=== PATIENT | female | born 1945 | race Caucasian/White ===

== ENCOUNTER 2017-06-02 21:26 | Observation (INO) | payer MEDICARE ==
[2017-06-02] MEDS ORDERED: ASPIRIN 81 MG CHEW PO STA (22:17)
[2017-06-02] MEDS ORDERED: NITROGLYCERIN OINT 1 INCH/GM PACKET TOPICAL STA (22:17)
[2017-06-02] MEDS ORDERED: SODIUM CHLORIDE 0.9% 1,000 ML IV STA (22:18)
[2017-06-02] MEDS ORDERED: ONDANSETRON 4 MG/2 ML VIAL IVP STA (22:18)
--- NOTE | 2017-06-02 22:22 | ED ---
General Adult HPI - General Chief complaint: Shortness of Breath Stated complaint: SOB Time Seen by Provider: 06/02/17 21:56 Source: patient Mode of arrival: EMS - History of Present Illness Initial comments: This 71-year-old white female presents with family with the complaint of developing some nausea earlier today. She then had an episode where she was short of breath and had some chest pain and felt dizzy and presyncopal. She states that the chest pain is described as more of a pressure throughout her left chest. She states that it lasted approximately 10 minutes and then seemed to resolve. She is feeling better at this time. She apparently was feeling somewhat anxious and does have a history of anxiety and is unsure if she had an anxiety attack. She denies any leg pain or swelling or history of DVT or PE. She does relate that she has a history of 3 felt the heart valves which are being monitored by her doctor through [facility]. She also relates a history of COPD as well as rheumatoid arthritis and states that she has a positive lupus clotting factor. She was recently diagnosed with stage III kidney disease. She states that her last echocardiogram was approximately one month ago. Her last stress test was approximately one year ago. She is being followed every 6 months with an echocardiogram through her gaming commissioner through [facility]. She apparently also has a 4.1 cm aortic aneurysm. She denies any other complaints or modifying factors. - Related Data Home Medications Medication Instructions Recorded Confirmed Atenolol 100 mg PO BID PRN 04/22/14 06/02/17 Febuxostat [Uloric] 40 mg PO DAILY 04/22/14 06/02/17 Albuterol Inhaler [Ventolin Hfa 1 puff INHALATION RT-QID PRN 06/02/17 06/02/17 Inhaler] Colchicine [Colcrys] 0.6 mg PO DAILY PRN 06/02/17 06/02/17 Ranitidine HCl [Zantac] 150 mg PO DAILY 06/02/17 06/02/17 amLODIPine [Norvasc] 10 mg PO DAILY PRN 06/02/17 06/02/17 predniSONE 2.5 mg PO QAM 06/02/17 06/02/17 Allergies Allergy/AdvReac Type Severity Reaction Status Date / Time No Known Allergies Allergy Verified 06/02/17 21:35 Review of Systems ROS Statement: Those systems with pertinent positive or pertinent negative responses have been documented in the HPI. ROS Other: All systems not noted in ROS Statement are negative. 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 VITAL SIGNS: Heart rate, blood pressure, respiratory rate reviewed as recorded in nurse's notes. EYES: Pupils are round and reactive. Extraocular movements are intact. No conjunctival / lid redness or swelling. ENT: No external evidence of injury, swelling, or ecchymosis. Airway is patent. Throat is clear. NECK: Nontender. No swelling or evidence of injury. No subcutaneous emphysema. Trachea is midline. No thyroid mass. HEART: Regular rate and rhythm. Good peripheral pulses. LUNGS/CHEST: Breath sounds clear and equal bilaterally. No rales, rhonchi, or wheezes. No ecchymosis, subcutaneous emphysema, or tenderness. ABDOMEN: Abdomen soft without tenderness. No palpable masses or organomegaly. No peritoneal signs. No abdominal wall swelling or ecchymosis. EXTREMITIES: No extremity tenderness. Normal muscle tone and function. No thoracolumbar tenderness. NEUROLOGIC: Sensation is grossly intact. Cranial nerve exam reveals face is symmetrical, tongue is midline, speech is clear. SKIN: No abrasions or ecchymosis is noted. No induration or masses noted. PSYCHIATRIC: Alert and oriented. Appropriate behavior and judgment. Course Vital Signs 06/02/17 06/02/17 21:29 23:02 Temperature 97.9 F Pulse Rate 54 L 55 L Respiratory 18 18 Rate Blood Pressure 170/80 150/73 O2 Sat by Pulse 97 95 Oximetry Medical Decision Making - Medical Decision Making The patient is seen and examined. All diagnostics were reviewed. An IV is established and she is placed on a cardiac technologist. No ectopy is identified. The EKG shows a sinus bradycardia at a rate of 56. No acute ST-T wave changes are identified. The SC interval is 168, QRS duration is 68, and the QTc interval is 409. She is given an aspirin as well as some Nitropaste. Zofran is administered IV. She is given mild fluid hydration. The chest x-ray does not show any acute process. The laboratory overall is fairly unremarkable with negative cardiac enzymes and negative d-dimer. The exact cause of her symptoms are not definitively determined. It is felt as though she would benefit from admission for further workup. The possibility of acute coronary syndrome certainly is possible. She is agreeable to this plan and case will be discussed with internal medicine in the near future. She is feeling much improved on recheck with the Zofran. - Lab Data Result diagrams: 06/02/17 21:41 06/02/17 21:41 Lab Results 06/02/17 06/02/17 06/02/17 Range/Units 21:41 21:41 21:41 WBC 5.2 (3.8-10.6) k/uL RBC 3.83 (3.80-5.40) m/uL Hgb 11.8 (11.4-16.0) gm/dL Hct 35.5 (34.0-46.0) % MCV 92.8 (80.0-100.0) fL MCH 30.9 (25.0-35.0) pg MCHC 33.3 (31.0-37.0) g/dL RDW 14.8 (11.5-15.5) % Plt Count 178 (150-450) k/uL Neutrophils % 88 % Lymphocytes % 9 % Monocytes % 2 % Eosinophils % 0 % Basophils % 0 % Neutrophils # 4.6 (1.3-7.7) k/uL Lymphocytes # 0.4 L (1.0-4.8) k/uL Monocytes # 0.1 (0-1.0) k/uL Eosinophils # 0.0 (0-0.7) k/uL Basophils # 0.0 (0-0.2) k/uL PT (9.0-12.0) sec INR (<1.2) APTT (22.0-30.0) sec D-Dimer (<0.60) mg/L FEU Sodium 136 L (137-145) mmol/L Potassium 4.3 (3.5-5.1) mmol/L Chloride 106 (98-107) mmol/L Carbon Dioxide 23 (22-30) mmol/L Anion Gap 7 mmol/L BUN 18 H (7-17) mg/dL Creatinine 1.10 H (0.52-1.04) mg/dL Est GFR (MDRD) Af Amer 60 (>60 ml/min/1.73 sqM) Est GFR (MDRD) Non-Af 49 (>60 ml/min/1.73 sqM) Glucose 101 H (74-99) mg/dL Calcium 9.1 (8.4-10.2) mg/dL Total Bilirubin 0.4 (0.2-1.3) mg/dL AST 17 (14-36) U/L ALT 29 (9-52) U/L Alkaline Phosphatase 66 (38-126) U/L Total Creatine Kinase <20 L (30-135) U/L CK-MB (CK-2) 0.4 (0.0-2.4) ng/mL CK-MB (CK-2) Rel Index 0.0 Troponin I <0.012 (0.000-0.034) ng/mL NT-Pro-B Natriuret Pep pg/mL Total Protein 6.0 L (6.3-8.2) g/dL Albumin 3.5 (3.5-5.0) g/dL 06/02/17 06/02/17 Range/Units 21:41 21:41 WBC (3.8-10.6) k/uL RBC (3.80-5.40) m/uL Hgb (11.4-16.0) gm/dL Hct (34.0-46.0) % MCV (80.0-100.0) fL MCH (25.0-35.0) pg MCHC (31.0-37.0) g/dL RDW (11.5-15.5) % Plt Count (150-450) k/uL Neutrophils % % Lymphocytes % % Monocytes % % Eosinophils % % Basophils % % Neutrophils # (1.3-7.7) k/uL Lymphocytes # (1.0-4.8) k/uL Monocytes # (0-1.0) k/uL Eosinophils # (0-0.7) k/uL Basophils # (0-0.2) k/uL PT 10.7 (9.0-12.0) sec INR 1.1 (<1.2) APTT 20.6 L (22.0-30.0) sec D-Dimer 0.58 (<0.60) mg/L FEU Sodium (137-145) mmol/L Potassium (3.5-5.1) mmol/L Chloride (98-107) mmol/L Carbon Dioxide (22-30) mmol/L Anion Gap mmol/L BUN (7-17) mg/dL Creatinine (0.52-1.04) mg/dL Est GFR (MDRD) Af Amer (>60 ml/min/1.73 sqM) Est GFR (MDRD) Non-Af (>60 ml/min/1.73 sqM) Glucose (74-99) mg/dL Calcium (8.4-10.2) mg/dL Total Bilirubin (0.2-1.3) mg/dL AST (14-36) U/L ALT (9-52) U/L Alkaline Phosphatase (38-126) U/L Total Creatine Kinase (30-135) U/L CK-MB (CK-2) (0.0-2.4) ng/mL CK-MB (CK-2) Rel Index Troponin I (0.000-0.034) ng/mL NT-Pro-B Natriuret Pep 269 pg/mL Total Protein (6.3-8.2) g/dL Albumin (3.5-5.0) g/dL Disposition Clinical Impression: Nausea, Chest pain, Dyspnea, Dizziness, Pre-syncope, Renal insufficiency, Valvular heart disease Disposition: ADMITTED IP TO THIS [facility] Condition: Fair Time of Disposition: 00:05 Decision Date: 06/03/17 Decision Time: 00:06
[2017-06-02 22:32] LABS: Basophils % (A) 0 %; CH 30.3; CHCM 32.8; Eosinophils % (A) 0 %; HCT 35.5 % (34.0-46.0); HDW 2.35; HGB 11.8 gm/dL (11.4-16.0); Luc # (Auto) 0.02; Luc % (Auto) 0; Lymphocytes # (A) 0.4 k/uL (1.0-4.8); Lymphocytes % (A) 9 %; MCH 30.9 pg (25.0-35.0); MCHC 33.3 g/dL (31.0-37.0); MCV 92.8 fL (80.0-100.0); Mean Platelet Volume 8.7; Monocytes # (A) 0.1 k/uL (0-1.0); Monocytes % (A) 2 %; Neutrophils # (A) 4.6 k/uL (1.3-7.7); Neutrophils % (A) 88 %; RBC 3.83 m/uL (3.80-5.40); RDW 14.8 % (11.5-15.5); WBC 5.2 k/uL (3.8-10.6); WBC (Perox) 5.12
[2017-06-02 22:41] LABS: INR 1.1 (<1.2); Prothrombin Time 10.7 sec (9.0-12.0)
[2017-06-02 22:54] LABS: Creatine Kinase <20 U/L (30-135)
--- NOTE | 2017-06-02 22:54 | XR ---
EXAM: XR Chest, 2 Views CLINICAL HISTORY: Reason: difficulty breathing TECHNIQUE: Frontal and lateral views of the chest. COMPARISON: Chest radiograph on 09/19/2016 FINDINGS: Lungs/pleura: Stable eventration of the right hemidiaphragm. No focal consolidation. No pleural effusion or pneumothorax. Heart/mediastinum: Normal. No cardiomegaly. Soft tissues: Unremarkable. Bones: No acute fracture. IMPRESSION: No acute disease identified
[2017-06-02 22:56] LABS: Calcium 9.1 mg/dL (8.4-10.2); Partial Thromboplastin Time 20.6 sec (22.0-30.0); Potassium 4.3 mmol/L (3.5-5.1); Total Bilirubin 0.4 mg/dL (0.2-1.3)
[2017-06-02 23:06] LABS: Creatine Kinase MB 0.4 ng/mL (0.0-2.4); Troponin I <0.012 ng/mL (0.000-0.034)
[2017-06-03] MEDS ORDERED: NITROGLYCERIN SL TABS 0.4 MG TAB SUBLINGUAL PRN (00:07)
[2017-06-03] MEDS ORDERED: ACETAMINOPHEN TAB 325 MG TAB PO PRN (00:07)
[2017-06-03] MEDS ORDERED: amLODIPine 10 MG TAB PO PRN (00:10)
[2017-06-03] MEDS ORDERED: ALBUTEROL NEBULIZED 2.5 MG/3 ML INHALATION PRN (00:10)
[2017-06-03] MEDS ORDERED: ONDANSETRON 4 MG/2 ML VIAL IVP PRN (00:10)
[2017-06-03] MEDS ORDERED: COLCHICINE 0.6 MG TAB PO PRN (00:10)
[2017-06-03] MEDS ORDERED: ATENOLOL 50 MG TAB PO PRN (00:10)
[2017-06-03 01:00] VITALS: BMI 21.1
[2017-06-03 05:37] LABS: Creatine Kinase MB 0.5 ng/mL (0.0-2.4); Troponin I 0.027 ng/mL (0.000-0.034)
[2017-06-03] MEDS ORDERED: NITROGLYCERIN OINT 1 INCH/GM PACKET TOPICAL SCH (06:00)
[2017-06-03 08:51] VITALS: RESP 16
[2017-06-03] MEDS ORDERED: predniSONE 10 MG TAB PO SCH (09:00)
[2017-06-03] MEDS ORDERED: ALLOPURINOL 100 MG TAB PO SCH (09:00)
[2017-06-03] MEDS ORDERED: FAMOTIDINE 20 MG TAB PO SCH (09:00)
[2017-06-03] MEDS ORDERED: ENOXAPARIN 40 MG/0.4 ML SYRINGE SQ SCH (09:00)
--- NOTE | 2017-06-03 10:08 | CONS ---
This is a lady with a history of rheumatoid arthritis, hypertension, hypercholesterolemia who has mild valvular regurgitation. She used to see Dr. Cee, now she sees a Interventionist in the [facility] system. She came here because she had a flare up of rheumatoid arthritis, increased her steroids, felt nauseated when she took the steroids. Had an uncomfortable feeling in her stomach and came into the hospital with also some nondescript chest tightness as well. Most of her complaint was nausea, some shortness of breath, felt dizzy, did quite pass out. After arrival, she is comfortable resting, actually feels a bit better. Apparently her last Lexiscan stress test performed about 15 months ago was unremarkable for ischemia. Echo reveals valvular regurgitation, subsequent VERNON suggested that the regurgitation was not significant but there was a mild aneurysmal dilation of ascending aorta. However, she has rheumatoid arthritis, used Remicade in the past, but because of some diastolic heart failure she has stopped using Remicade. She is comfortable, resting without symptoms. Two sets of troponins are normal and her d-dimer is also unremarkable. PAST MEDICAL HISTORY: 1. Remarkable for rheumatoid arthritis and she is not on any anti-TNF drugs. 2. She has history of diastolic heart dysfunction. 3. Valvular regurgitation. 4. Mild dilatation of ascending aorta. 5. Hypertension. 6. Osteoarthritis. 7. History of previous left hip arthroplasty. ALLERGIES: None. MEDICATIONS: Colchicine, ranitidine, amlodipine and now she is taking prednisone for her flare up. She also takes albuterol inhaler, atenolol 100 mg daily. SOCIAL HISTORY: Patient is not a smoker, does not consume alcohol. On examination, blood pressure is 138/70, pulse rate is 62 per minute, regular. HEENT: Unremarkable. Fundus was not examined by me. Neck is supple, no JVD. I do not hear a carotid bruit. Heart exam reveals S1, S2 without any significant rub, murmur or gallop. Lungs are clear. Abdomen is soft, nontender. Lower extremities reveal normal pulses, no edema. Central nervous system is normal. EKG reveals sinus mechanism, nonspecific ST abnormality, borderline voltage criteria for LVH. Laboratory data revealed unremarkable troponins and also negative d-dimer. IMPRESSION: 1. Atypical chest pain and nausea, probably a flare up of rheumatoid arthritis. 2. Rheumatoid arthritis with deformities. 3. Hypertension. 4. Hyperlipidemia. 5. History of valvular regurgitation and mild dilatation of ascending aorta being followed noninvasively. RECOMMENDATIONS: I am not suggesting any intervention. I will increased activity, have her eat something. If she has no further symptoms, she can be discharged. Pain seems atypical and she had a stress test within the last 14 to 15 months which is unremarkable. If she has recurrence of symptoms, will re- evaluate her, but she can be discharged today. Thank you very much for the consult. RL
[2017-06-03 10:36] LABS: Creatine Kinase MB 0.5 ng/mL (0.0-2.4); Troponin I 0.027 ng/mL (0.000-0.034)
[2017-06-03 12:28] VITALS: BP 152/73; PULSE 56; TEMP 98.8
--- NOTE | 2017-06-03 14:26 | P.HPIM ---
History of Present Illness H&P Date: 06/03/17 Chief Complaint: Not feeling well This is [address] Orona. Patient chronic stable medical conditions include COPD, hyperlipidemia, hypertension, has both osteoarthritis, scoliosis, gout, ascending thoracic artery aneurysm. Patient's long-standing rheumatoid arthritis getting worse has now been off Remicade. Intercavitary just put him on a burst of steroid. Patient also known to have leaky cardiac valves which what she describes she was offered to have TAVR but because of other medical problems this was decided against it. Patient presents with episodes of nausea and dizziness, and patient has not been eating well the patient thinks she's lost about 30 pounds of weight in the recent times. He patient had some chest pressure lasted for about 5 minutes, no perspiration present, no radiation. Just feeling tired and rundown. Has decided to come into the ER. Significant past medical history: COPD, hyperlipidemia, hypertension, rheumatoid arthritis off Remicade, gastritis , thyroid nodule, psoriasis, ascending thoracic aneurysm, leaky cardiac valves, gout Review of Systems GEN.: Tired EYES: None HEENT: None NECK: None RESPIRATORY: None CARDIOVASCULAR: As above GASTROINTESTINAL: As above, GENITOURINARY: None MUSCULOSKELETAL: Pain in the joints LYMPHATICS: None HEMATOLOGICAL: [None] PSYCHIATRY: [Anxiety] NEUROLOGICAL: [None] Past Medical History Past Medical History: COPD, Hyperlipidemia, Hypertension, Osteoarthritis (OA), Rheumatoid Arthritis (RA) Additional Past Medical History / Comment(s): vasculitisbenign thyroid nodules4 types of arthritis - RA, psoriatic, chronic gout, OAautoimmune inner ear, Aortic Anysrusm History of Any Multi-Drug Resistant Organisms: None Reported Past Surgical History: Section, Heart Catheterization, Hysterectomy, Joint Replacement Additional Past Surgical History / Comment(s): left hip replacementremoval of Parotid tumor - left side of neck right knee arthroscopy, left wrist ganglion cyst removal, VERNON Past Anesthesia/Blood Transfusion Reactions: No Reported Reaction Past Psychological History: No Psychological Hx Reported Smoking Status: Never smoker Past Alcohol Use History: None Reported Past Drug Use History: None Reported Additional History: , does not smoke or drink alcohol - Past Family History Mother Family Medical History: No Reported History Father Family Medical History: Myocardial Infarction (PR) Sister(s) Additional Family Medical History / Comment(s): Lupus - pt's sister Medications and Allergies Home Medications Medication Instructions Recorded Confirmed Type Atenolol 100 mg PO BID PRN 04/22/14 06/02/17 History Febuxostat [Uloric] 40 mg PO DAILY 04/22/14 06/02/17 History Albuterol Inhaler [Ventolin Hfa 1 puff INHALATION RT-QID PRN 06/02/17 06/03/17 History Inhaler] Colchicine [Colcrys] 0.6 mg PO DAILY PRN 06/02/17 06/02/17 History Ranitidine HCl [Zantac] 150 mg PO DAILY 06/02/17 06/02/17 History amLODIPine [Norvasc] 10 mg PO DAILY PRN 06/02/17 06/02/17 History predniSONE 2.5 mg PO QAM 06/02/17 06/02/17 History Allergies Allergy/AdvReac Type Severity Reaction Status Date / Time No Known Allergies Allergy Verified 06/03/17 00:54 Physical Exam Vitals: Vital Signs Temp Pulse Pulse Resp BP BP Pulse Ox 06/03/17 12:00 98.8 F 56 L 16 152/73 96 06/03/17 08:00 98.0 F 52 L 16 140/62 97 06/03/17 04:00 18 06/03/17 03:49 55 L 18 116/60 96 06/03/17 01:11 18 06/03/17 00:55 97.8 F 51 L 18 140/71 96 06/03/17 00:39 97.9 F 63 18 132/66 96 06/02/17 23:02 55 L 18 150/73 95 06/02/17 21:29 97.9 F 54 L 18 170/80 97 VITAL SIGNS: [Reviewed. BMI noted] GENERAL: [Average built, sitting up, tired appearing]. EYES: [Pupils equal. Conjunctiva wendy]l. HEENT: [External appearance of nose and ears normal, oral cavity grossly normal] . NECK: [JVD not raised; masses not palpable]. HEART: [First and second heart sounds are normal; no edema]. LUNGS:[ Respiratory rate normal; clear to auscultation]. ABDOMEN: [Soft, nontender, liver spleen not palpable, no masses palpable]. LYMPHATICS: [No lymph nodes palpable in the axilla and neck]. PSYCH: [Alert and oriented x3; mood and affect anxious appearing]l. NEUROLOGICAL: [Cranial nerves grossly intact; no facial asymmetry, power and sensation grossly intact]. MUSCULOSKELETAL: Evidence of severe rheumatoid arthritis specialist in the hands with prominent MCP joints and ulna deviation of the fingers Results CBC & Chem 7: 06/02/17 21:41 06/02/17 21:41 Labs: White count 5.2, hemoglobin 11.8, potassium 4.3,. 18, creatinine 1.10 Troponin less than 0.012, 0.027, 0.027 EKG-nonspecific ST segment changes Assessment and Plan Plan: Assessment: -Possible side effects of steroids and patient will be eating well causing her to become nausea dizzy. Atypical chest pain not really can't take sounding. COPD Hyperlipidemia Hypertension Severe bilateral rheumatoid arthritis Ascending without ascending aorta aneurysm and aneurysm Chronic gout Clinically dehydrated with elevated BUNs from decreased oral intake and nausea vomiting Plan: Patient be hydrated. Cardiology was consulted. Cardiac enzymes are in place. Home medications resumed. Patient is feeling better with hydration.
[2017-06-04] MEDS ORDERED: ASPIRIN 325 MG TAB PO SCH (09:00)
--- NOTE | 2017-06-04 11:22 | P.DS ---
Providers Date of admission: 06/03/17 00:07 Expected date of discharge: 06/03/17 Attending physician: Derek Bright Consults: 06/03/17 00:07 Consult Physician Urgent Consulting Provider: Francis Millan Consult Reason/Comments: cp and sob Do you want consulting provider notified?: Yes Primary care physician: Lázaro Orona [facility] Course: This is [address] Orona. Patient chronic stable medical conditions include COPD, hyperlipidemia, hypertension, has both osteoarthritis and rheumatoid arthritis, scoliosis, gout, ascending thoracic artery aneurysm. Patient's long-standing rheumatoid arthritis getting worse has now been off Remicade. Dr. Orona just put him on a burst of steroid. Patient also known to have leaky cardiac valves which what she describes she was offered to have TAVR but because of other medical problems this was decided against it. Patient presents with episodes of nausea and dizziness, and patient has not been eating well the patient thinks she's lost about 30 pounds of weight in the recent times. He patient had some chest pressure lasted for about 5 minutes, no perspiration present, no radiation. Just feeling tired and rundown. Has decided to come into the ER. Patient is felt to be clinically dehydrated. With the elevated BUN/creatinine. Responded very well to IV fluids. Troponins were negative. Seen by Dr. ANDI Moreno from cardiology who okayed the patient to be discharged. Care was discussed in detail with the patient. On examination: Lungs-fair entry, cardiovascular first seconds are normal Final diagnosis: -Possible side effects of steroids and patient not eating well causing her to become nausea dizzy. Atypical chest pain not really cardiac sounding. COPD Hyperlipidemia Hypertension Severe bilateral rheumatoid arthritis ascending aorta aneurysm , chronic Chronic gout Clinically dehydrated with elevated BUNs from decreased oral intake and nausea vomiting, present on admission Patient Condition at Discharge: Stable Plan - Discharge Summary New Discharge Prescriptions: Continue Febuxostat [Uloric] 40 mg PO DAILY Atenolol 100 mg PO BID PRN PRN Reason: Blood Pressure - High predniSONE 2.5 mg PO QAM Ranitidine HCl [Zantac] 150 mg PO DAILY amLODIPine [Norvasc] 10 mg PO DAILY PRN PRN Reason: Blood Pressure - High Albuterol Inhaler [Ventolin Hfa Inhaler] 1 puff INHALATION RT-QID PRN PRN Reason: Shortness Of Breath Colchicine [Colcrys] 0.6 mg PO DAILY PRN PRN Reason: Gout Flareup Discharge Medication List Atenolol 100 mg PO BID PRN 04/22/14 [History] Febuxostat [Uloric] 40 mg PO DAILY 04/22/14 [History] Albuterol Inhaler [Ventolin Hfa Inhaler] 1 puff INHALATION RT-QID PRN 06/02/17 [ History] Colchicine [Colcrys] 0.6 mg PO DAILY PRN 06/02/17 [History] Ranitidine HCl [Zantac] 150 mg PO DAILY 06/02/17 [History] amLODIPine [Norvasc] 10 mg PO DAILY PRN 06/02/17 [History] predniSONE 2.5 mg PO QAM 06/02/17 [History] Follow up Appointment(s)/Referral(s): Lázaro Orona MD [REFERRING] - 3 Days Patient Instructions/Handouts: Chest Pain (GEN) Discharge Disposition: HOME SELF-CARE
== END 2017-06-03 15:43 | disposition home or self-care (01) ==
LOC: EC 21:26 → 3OBS 06-03 00:07
PROVIDERS: ADMIT Hospitalist; ATTEND Hospitalist
DX: R11.0 Nausea (principal); R07.9 Chest pain, unspecified; R42 Dizziness and giddiness; R55 Syncope and collapse; N28.9 Disorder of kidney and ureter, unspecified; I50.30 Unspecified diastolic (congestive) heart failure; I11.0 Hypertensive heart disease with heart failure; E78.5 Hyperlipidemia, unspecified; E86.0 Dehydration; R11.2 Nausea with vomiting, unspecified; F41.9 Anxiety disorder, unspecified; J44.9 Chronic obstructive pulmonary disease, unspecified; M06.9 Rheumatoid arthritis, unspecified; I71.2 Thoracic aortic aneurysm, without rupture; M19.90 Unspecified osteoarthritis, unspecified site; M1A.9XX0 Chronic gout, unspecified, without tophus (tophi); L40.9 Psoriasis, unspecified; Z96.642 Presence of left artificial hip joint; G51.0 Bell's palsy; E78.00 Pure hypercholesterolemia, unspecified; I38 Endocarditis, valve unspecified; Z82.49 Family history of ischemic heart disease and other diseases of the circulatory system; Z79.899 Other long term (current) drug therapy; Z79.52 Long term (current) use of systemic steroids
CPT/HCPCS: 96361 ×4; 96374 ×2; 99285 ×2; 96372; 36415; 93005; 85379; 83880; 80053; 82550 ×2; 82553 ×2; 84484 ×2; 85025; 85610; 85730; 71020; G0378; J2405; J1650; J7512

== ENCOUNTER → 2017-12-22 | Outpatient (CLI) | payer MEDICARE ==
--- NOTE | 2017-12-25 11:23 | MM ---
Reason for exam: screening (asymptomatic). Last mammogram was performed 20 years and 8 months ago. History: Patient is postmenopausal. Core biopsy of the left breast. Core biopsy of the right breast. Took estrogen for 1 year. Physical Findings: A clinical breast exam by your physician is recommended on an annual basis and results should be correlated with mammographic findings. MG 3D Screening Mammo W/Cad Bilateral CC and MLO view(s) were taken. Prior study comparison: May 01, 1997, bilateral diagnostic mammogram. The breast tissue is heterogeneously dense. This may lower the sensitivity of mammography. Multiple calcification masses. There is chronic nodularity bilaterally. No significant changes when compared with prior studies. ASSESSMENT: Benign, BI-RAD 2 RECOMMENDATION: Routine screening mammogram of both breasts in 1 year.
== END | disposition home or self-care (01) ==
LOC: RADMAMWWP 07:57
PROVIDERS: ATTEND Family Medicine
DX: Z12.31 Encounter for screening mammogram for malignant neoplasm of breast (principal)
CPT/HCPCS: 77063; 77067

== ENCOUNTER → 2017-12-22 | Outpatient (CLI) | payer MEDICARE ==
--- NOTE | 2017-12-22 12:08 | US ---
EXAMINATION TYPE: US renal artery duplex completa DATE OF EXAM: 12/22/2017 COMPARISON: NONE CLINICAL HISTORY: I12.9 hypertensive CKD. MEASUREMENTS: RENAL SIZE: Rt Kidney: 8.3 x 3.1 x 3.9cm Lt Kidney: 9.2 x 3.6 x 4.5cm RESISTANCE INDEX Right: 0.78 Left: 0.79 RA/AO RATIO (< 3.5 ) Right: 1.0 Left: 1.1 RA VELOCITY ( < 180 cm/s) Right: 89cm/s Left: 86cm/s Grayscale, color Doppler, spectral Doppler imaging performed over the abdominal aorta, renal arteries . Atheromatous changes are present within the abdominal aorta. No evident abdominal aortic aneurysm. Pr oximal common iliac arteries show normal diameter. Cortical echotexture somewhat increased. Cortical medullary differentiation is maintained bilaterally. Waveform analysis shows risk upstroke at the renal arteries, low resistance diastolic flow is present bilaterally. IMPRESSION: Findings compatible with medical renal disease.
== END | disposition home or self-care (01) ==
LOC: RADUSMAIN 07:54
PROVIDERS: ATTEND Family Medicine
DX: I12.9 Hypertensive chronic kidney disease with stage 1 through stage 4 chronic kidney disease, or unspecified chronic kidney disease (principal); N18.9 Chronic kidney disease, unspecified
CPT/HCPCS: 93975

== ENCOUNTER → 2018-01-16 | Outpatient (CLI) | payer MEDICARE ==
--- NOTE | 2018-01-17 10:03 | NM ---
EXAMINATION TYPE: NM parathyroid w/spect DATE OF EXAM: 01/16/2018 COMPARISON: CT chest 10/18/2016 HISTORY: Hypercalcemia TECHNIQUE: Following administration of 26.4 mCi Tc99m Sestamibi. Anterior projection images of the neck and ches t were obtained 10 minutes and 3 hours post injection. SPECT images of the neck and chest were obtai meche and reconstructed in three axes. FINDINGS: Thyroid tracer washout: Delayed images demonstrate near-complete tracer washout from the thyroid. Parathyroid uptake: Small focus of radial pharmaceutical uptake is suspected at the level of the infe rior margin of the left lobe of the thyroid. Corresponding small mass measuring 9 x 10mm in greatest dimension is noted on CT at this level. IMPRESSION: Findings suspicious for parathyroid adenoma below the lower pole of left lobe of the thyroid posterio rly
== END | disposition home or self-care (01) ==
LOC: RADNMMAIN 11:20
PROVIDERS: ATTEND Internal Medicine
DX: E83.52 Hypercalcemia (principal)
CPT/HCPCS: 78071; A9500

== ENCOUNTER → 2018-04-13 | Outpatient (CLI) | payer MEDICARE ==
--- NOTE | 2018-04-13 14:46 | US ---
EXAMINATION TYPE: US venous doppler duplex LE DATE OF EXAM: 04/13/2018 12:51 PM COMPARISON: NONE CLINICAL HISTORY: I80.299 Deep Vein Thrombosis. History of DVT left leg, diagnosed 8 months ago. Sobeida ent on blood thinner SIDE PERFORMED: Bilateral TECHNIQUE: The lower extremity deep venous system is examined utilizing real time linear array sonog audi with graded compression, doppler sonography and color-flow sonography. VESSELS IMAGED: External Iliac Vein (EIV) Common Femoral Vein Deep Femoral Vein Greater Saphenous Vein * Femoral Vein Popliteal Vein Small Saphenous Vein * Proximal Calf Veins (* superficial vessels) Right Leg: No evidence of DVT. Complex anechoic area right popliteal fossa = 8.5 x 2.1 x 5.6cm, Bake r's cyst Left Leg: No evidence of DVT. Complex hypoechoic area left popliteal fossa = 7.8 x 4.7 x 3.0cm, Bake r's cyst IMPRESSION: 1. Lower extremity ultrasound negative for deep venous thrombosis bilateral lower extremities. 2. Bilateral popliteal cysts. This appears more complex on the left.
== END | disposition home or self-care (01) ==
LOC: RADUSWWP 12:14
PROVIDERS: ATTEND Internal Medicine Hematology & Oncology
DX: M71.22 Synovial cyst of popliteal space [Baker], left knee (principal); M71.21 Synovial cyst of popliteal space [Baker], right knee; I80.299 Phlebitis and thrombophlebitis of other deep vessels of unspecified lower extremity
CPT/HCPCS: 93970

== ENCOUNTER 2018-11-12 06:24 | Emergency (ER) | payer MEDICARE ==
[2018-11-12 06:32] VITALS: TEMP 97.8
[2018-11-12] MEDS ORDERED: HYDROcodone/APAP 5-325MG 1 EACH TAB PO STA (06:56)
--- NOTE | 2018-11-12 07:43 | XR ---
2 left shoulder History: Pain 3 views of the left shoulder. There is inferior displacement of the left humerus in relation to the bony glenoid. Increased density is present at the level of the joint. Bone mineralization is reduced. Marked arthropathy present at the acromioclavicular joint. Left lung apex as visualized is normal. No evident fracture. Distal acro mial spur suspected. IMPRESSION: Inferior subluxation, partial dislocation of the left shoulder joint, there may be joint effusion, hemarthrosis.
[2018-11-12] MEDS ORDERED: ETOMIDATE 2 MG/ML 10 ML VIAL IV STA (07:45)
[2018-11-12] MEDS ORDERED: ONDANSETRON 4 MG/2 ML VIAL IVP STA (07:52)
--- NOTE | 2018-11-12 08:00 | ED ---
Extremity Problem HPI <Eliseo Griffin - Last Filed: 11/12/18 08:29> - General Source: patient Mode of arrival: ambulatory Limitations: no limitations <Estephanie Louise - Last Filed: 11/12/18 08:58> - General Chief complaint: Extremity Problem,Nontraumatic Stated complaint: Shoulder Injury Time Seen by Provider: 11/12/18 07:08 - History of Present Illness Initial comments: 73-year-old female patient presents to the emergency department today for evaluation of left shoulder pain. Patient states she does have history of spontaneous dislocation to the right shoulder she feels the same may be happening to the left. Patient states she does have history of rheumatoid arthritis which she believes is a cause for the recurrent dislocations. She denies any injury to the shoulder. States the pain woke her up at 3:00 this morning. She denies any other injuries or physical concerns. Patient denies any headache, neck pain, back pain, chest pain, shortness of breath, dizziness, weakness, abdominal pain, nausea, vomiting, or difficulties with bowel movements or urination. (Estephanie Louise) - Related Data Home Medications Medication Instructions Recorded Confirmed Atenolol 100 mg PO DAILY 04/22/14 09/16/17 Febuxostat [Uloric] 40 mg PO DAILY 04/22/14 09/16/17 Albuterol Inhaler [Ventolin Hfa 1 puff INHALATION RT-QID PRN 06/02/17 09/16/17 Inhaler] Ranitidine HCl [Zantac] 150 mg PO DAILY 06/02/17 09/16/17 Apixaban [Eliquis] 5 mg PO BID 09/16/17 09/16/17 Budesonide/Formoterol Fumarate 1 puff INHALATION RT-DAILY 09/16/17 09/16/17 [Symbicort 160-4.5 Mcg Inhaler] Hydrochlorothiazide [Hydrodiuril] 25 mg PO DAILY 09/16/17 09/16/17 Rosuvastatin [Crestor] 10 mg PO DAILY 09/16/17 09/16/17 amLODIPine [Norvasc] 5 mg PO DAILY 09/16/17 09/16/17 predniSONE See Taper PO DAILY 09/16/17 09/16/17 Previous Rx's Medication Instructions Recorded Hydrocodone/Acetaminophen [[place] 1 each PO Q6HR PRN #20 tab 09/16/17 5-325] Cyclobenzaprine [Flexeril] 5 mg PO TID #15 tablet 11/12/18 Allergies Allergy/AdvReac Type Severity Reaction Status Date / Time No Known Allergies Allergy Verified 11/12/18 06:32 Review of Systems ROS Other: All systems not noted in ROS Statement are negative. <Eliseo Griffin - Last Filed: 11/12/18 08:29> ROS Other: All systems not noted in ROS Statement are negative. <Estephanie Louise - Last Filed: 11/12/18 08:58> ROS Statement: Those systems with pertinent positive or pertinent negative responses have been documented in the HPI. Past Medical History Past Medical History: COPD, Hyperlipidemia, Hypertension, Osteoarthritis (OA), Rheumatoid Arthritis (RA) Additional Past Medical History / Comment(s): vasculitisbenign thyroid nodules4 types of arthritis - RA, psoriatic, chronic gout, OAautoimmune inner ear, Aortic Anysrusm History of Any Multi-Drug Resistant Organisms: None Reported Past Surgical History: Section, Heart Catheterization, Hysterectomy, Joint Replacement Additional Past Surgical History / Comment(s): left hip replacementremoval of Parotid tumor - left side of neck right knee arthroscopy, left wrist ganglion cyst removal, [facility]ON Past Anesthesia/Blood Transfusion Reactions: No Reported Reaction Past Psychological History: No Psychological Hx Reported Smoking Status: Never smoker Past Alcohol Use History: None Reported Past Drug Use History: None Reported - Past Family History Mother Family Medical History: No Reported History Father Family Medical History: Myocardial Infarction ([place]) Sister(s) Additional Family Medical History / Comment(s): Lupus - pt's sister <Estephanie Louise - Last Filed: 11/12/18 08:58> General Exam Limitations: no limitations General appearance: alert, in no apparent distress, other (This is a well- developed, well-nourished elderly female patient in no acute distress. Vital signs upon presentation are temperature 97.8F, pulse 62, respirations 16, blood pressure 179/82, pulse ox 100% on room air.) Eye exam: Present: normal appearance, PERRL, EOMI. Absent: scleral icterus, conjunctival injection, periorbital swelling ENT exam: Present: normal exam, normal oropharynx, mucous membranes moist Respiratory exam: Present: normal lung sounds bilaterally. Absent: respiratory distress, wheezes, rales, rhonchi, stridor Cardiovascular Exam: Present: regular rate, normal rhythm, normal heart sounds. Absent: systolic murmur, diastolic murmur, rubs, gallop, clicks Extremities exam: Present: normal capillary refill, other (Patient has obvious deformity to the left shoulder, skin is pink, warm, dry. Cap refills less than 3 seconds. Radial pulses 2+ and equal bilaterally.). Absent: normal inspection , full ROM (Decreased range of motion due to increased pain with movement of left shoulder), tenderness, pedal edema, joint swelling, calf tenderness Neurological exam: Present: alert, oriented X3, CN II-XII intact Psychiatric exam: Present: anxious Skin exam: Present: warm, intact, normal color, diaphoretic. Absent: dry, rash <Estephanie Louise - Last Filed: 11/12/18 08:58> Vital Signs 11/12/18 11/12/18 11/12/18 06:29 08:04 08:11 Temperature 97.8 F Pulse Rate 62 56 L 57 L Respiratory 16 18 16 Rate Blood Pressure 179/82 173/79 175/81 O2 Sat by Pulse 100 99 100 Oximetry 11/12/18 11/12/18 08:22 08:40 Temperature Pulse Rate 63 61 Respiratory 16 18 Rate Blood Pressure 181/80 171/94 O2 Sat by Pulse 96 97 Oximetry Procedures - Orthopedic Joint Reduction Joint #1 Consent Obtained: verbal consent Time Out Performed: Yes Side: left Joint Reduction Location: shoulder Analgesia: procedural sedation Shoulder Technique Used (if applicable): traction/counter-traction Post Reduction X-Ray Obtained: Yes Post Reduction X-Ray Results: reduced Patient Tolerated Procedure: well, no complications - Procedural Sedation Procedural Sedation Start Time: 08:04 Procedural Sedation Stop Time: 08:30 Indications: fracture/dislocation reduction Preparation: monitoring tech applied, pulse oximeter, capnometry used, supplemental O2 applied IV Etomidate Dose (mgs): 8 <Eliseo Griffin - Last Filed: 11/12/18 08:29> Medical Decision Making <Eliseo Griffin - Last Filed: 11/12/18 08:29> - Radiology Data Radiology results: report reviewed, image reviewed <Estephanie Louise - Last Filed: 11/12/18 08:58> - Medical Decision Making 73-year-old female patient presents to the emergency department today for evaluation of left shoulder pain and deformity. Patient woke at 3 AM with severe left shoulder pain and felt dislocated. Physical examination did deformity of the left shoulder consistent with dislocation. X-ray of the left shoulder did reveal a partial dislocation with inferior subluxation. Patient is neurovascularly intact with good pulses. Did perform conscious sedation with closed reduction with Dr. Griffin. Repeat x-ray did reveal improved positioning of the humeral head. Patient will be discharged home with sling in place patient is instructed to follow up with orthopedics for re-eval as soon as possible. Patient declines opiate pain medication, prefers to take tylenol. She will be given muscle relaxer. Return parameters were discussed in detail. Patient verbalizes understanding and agreed with this plan. (Estephanie Louise) - Radiology Data 3 views of the left shoulder obtained. Report was reviewed in its entirety. Impression by Dr. Bryan shows inferior subluxation, partial dislocation of the left shoulder joint, there may be joint effusion, hemarthrosis. Single view of the left shoulder is obtained postreduction, report was reviewed in its entirety. Impression shows improved superior positioning versus prior study of the humeral head. (Estephanie Louise) Disposition <Eliseo Griffin - Last Filed: 11/12/18 08:29> Is patient prescribed a controlled substance at d/c from ED?: No Time of Disposition: 08:51 <Estephanie Louise - Last Filed: 11/12/18 08:58> Clinical Impression: Dislocation of left shoulder joint Disposition: HOME SELF-CARE Condition: Good Instructions: Shoulder Dislocation (ED), Moderate Sedation (ED) Additional Instructions: Keep sling in place until follow up with resource protection specialist. Take medication as directed. Take tylenol as needed for pain control. Apply ice to the shoulder 20 minutes at a time at least four times daily. Follow up with resource protection specialist for recheck as soon as possible. Return immediately for any new, worsening, or concerning symptoms. Prescriptions: Cyclobenzaprine [Flexeril] 5 mg PO TID #15 tablet Referrals: Lázaro Orona MD [Primary Care Provider] - 1-2 days Camron Oliver DO [Doctor of Osteopathic Medicine] - 1-2 days
--- NOTE | 2018-11-12 08:31 | XR ---
EXAMINATION TYPE: XR shoulder limited LT DATE OF EXAM: 11/12/2018 CLINICAL HISTORY: Left shoulder pain TECHNIQUE: Single portable view of left shoulder is obtained. COMPARISON: Left shoulder x-ray earlier today. FINDINGS: There is no acute fracture evident in the left shoulder on single view. Demineralization i s redemonstrated. There is improved superior positioning versus prior study of the humeral head. Ther e is prominent spur from inferior medial aspect redemonstrated. There is suspected old Hill-Sachs def ormity of the humeral head. Acromioclavicular joint shows moderate spurring and narrowing. Visualized ribs are intact. IMPRESSION: As above.
[2018-11-12 08:43] VITALS: BP 171/94; PULSE 61; RESP 18
[2018-11-12] MEDS ORDERED: CYCLOBENZAPRINE 10MG STARTER 3 TAB BTL PO STA (08:52)
== END 2018-11-12 09:07 | disposition home or self-care (01) ==
LOC: EC 06:24
DX: M24.312 Pathological dislocation of left shoulder, not elsewhere classified (principal); J44.9 Chronic obstructive pulmonary disease, unspecified; E78.5 Hyperlipidemia, unspecified; I10 Essential (primary) hypertension; M19.90 Unspecified osteoarthritis, unspecified site; M06.9 Rheumatoid arthritis, unspecified; L40.9 Psoriasis, unspecified; M10.9 Gout, unspecified; Z79.52 Long term (current) use of systemic steroids; Z79.51 Long term (current) use of inhaled steroids; Z79.01 Long term (current) use of anticoagulants; Z79.899 Other long term (current) drug therapy; Z95.818 Presence of other cardiac implants and grafts; Z96.642 Presence of left artificial hip joint
CPT/HCPCS: 99283 ×2; 23650 ×2; 99152 ×2; 96374 ×2; 73030; 73020; L3670; J2405

== ENCOUNTER 2019-03-03 07:14 | Emergency (ER) | payer MEDICARE ==
[2019-03-03 07:22] VITALS: RESP 18
[2019-03-03] MEDS ORDERED: HYDROcodone/APAP 5-325MG 1 EACH TAB PO STA (07:37)
--- NOTE | 2019-03-03 07:37 | ED ---
General Adult HPI - General Chief complaint: Extremity Injury, Upper Stated complaint: fall, rt arm injury Time Seen by Provider: 03/03/19 07:16 Source: patient, family Mode of arrival: wheelchair - History of Present Illness Initial comments: Dictation was produced using [employer] dictation software. please excuse any grammatical, word or spelling errors. Chief Complaint: 73-year-old female with chronic arthritic changes of the shoulders secondary to rheumatoid arthritis presents with right shoulder and right elbow pain. History of Present Illness: Patient is 73-year-old female. She has a history of rheumatoid arthritis. Patient has chronic shoulder issues secondary to rheumatoid arthritis. Patient states that 5 and she tripped housing her to go sideways into the wall. She states she bumped her shoulder to the wall. Patient reports that immediately after she noted right shoulder and right elbow pain. She had a sling from a previous shoulder injury. Patient is a history of chronic shoulder issues and has been evaluated by orthopedic surgery for. Decision was made to not perform any invasive surgeries given that patient has chronic comorbidities and is a surgical risk. Patient states she's dislocator shoulders on multiple occasions secondary to weak shoulder capsule. The ROS documented in this emergency department record has been reviewed and confirmed by me. Those systems with pertinent positive or negative responses have been documented in the HPI. All other systems are other negative and/or noncontributory. PHYSICAL EXAM: General Impression: Alert and oriented x3, not in acute distress HEENT: Normocephalic atraumatic, extra-ocular movements intact, pupils equal and reactive to light bilaterally, mucous membranes moist. Cardiovascular: Heart regular rate and rhythm, S1&S2 audible, no murmurs, rubs or gallops Chest: Lungs clear to auscultation bilaterally, no rhonchi, no wheeze, no rales Abdomen: Bowel sounds present, abdomen soft, non-tender, non-distended, no organomegaly Musculoskeletal: Pulses present and equal in all extremities, no peripheral edema Motor: no focal deficits noted Neurological: CN II-XII grossly intact, no focal motor or sensory deficits noted Skin: Intact with no visualized rashes Psych: Normal affect and mood Right shoulder: Gross motor movements intact. Limited abduction of the right shoulder. ED course: 73-year-old female with right shoulder pain after contusion. Vital signs upon arrival are within acceptable limits.Repeat physical examination was performed with tenderness over the lateral elbow. X-rays were performed. Shoulder x-ray is unremarkable. There is extensive findings of degenerative changes and indirect evidence of rotator cuff disease. Although x-ray was performed showing joint effusion. There is suspicion of posterior fat pad sign which may represent supracondylar or radial head fracture. Patient placed in a splint. She has a establish orthopedic surgery that she seen this week she is told to address this with orthopedic surgery. Patient placed in splint and sling. Patient given prescription for pain pills. She is otherwise advised to follow up with orthopedic surgery. Patient is understandable and agreeable to plan. - Related Data Home Medications Medication Instructions Recorded Confirmed Atenolol 100 mg PO DAILY 04/22/14 09/16/17 Febuxostat [Uloric] 40 mg PO DAILY 04/22/14 09/16/17 Albuterol Inhaler [Ventolin Hfa 1 puff INHALATION RT-QID PRN 06/02/17 09/16/17 Inhaler] Ranitidine HCl [Zantac] 150 mg PO DAILY 06/02/17 09/16/17 Apixaban [Eliquis] 5 mg PO BID 09/16/17 09/16/17 Budesonide/Formoterol Fumarate 1 puff INHALATION RT-DAILY 09/16/17 09/16/17 [Symbicort 160-4.5 Mcg Inhaler] Hydrochlorothiazide [Hydrodiuril] 25 mg PO DAILY 09/16/17 09/16/17 Rosuvastatin [Crestor] 10 mg PO DAILY 09/16/17 09/16/17 amLODIPine [Norvasc] 5 mg PO DAILY 09/16/17 09/16/17 predniSONE See Taper PO DAILY 09/16/17 09/16/17 Previous Rx's Medication Instructions Recorded Hydrocodone/Acetaminophen [[place] 1 each PO Q6HR PRN #20 tab 09/16/17 5-325] Cyclobenzaprine [Flexeril] 5 mg PO TID #15 tablet 11/12/18 HYDROcodone/APAP 5-325MG [[place] 1 tab PO Q6HR PRN 3 Days #5 tab 03/03/19 5-325] Allergies Allergy/AdvReac Type Severity Reaction Status Date / Time No Known Allergies Allergy Verified 03/03/19 07:19 Review of Systems ROS Statement: Those systems with pertinent positive or pertinent negative responses have been documented in the HPI. ROS Other: All systems not noted in ROS Statement are negative. Past Medical History Past Medical History: COPD, Hyperlipidemia, Hypertension, Osteoarthritis (OA), Rheumatoid Arthritis (RA) Additional Past Medical History / Comment(s): vasculitisbenign thyroid nodules4 types of arthritis - RA, psoriatic, chronic gout, OAautoimmune inner ear, Aortic Anysrusm History of Any Multi-Drug Resistant Organisms: None Reported Past Surgical History: Section, Heart Catheterization, Hysterectomy, Joint Replacement Additional Past Surgical History / Comment(s): left hip replacementremoval of Parotid tumor - left side of neck right knee arthroscopy, left wrist ganglion cyst removal, [facility]ERNON, RT thumb surgery Past Anesthesia/Blood Transfusion Reactions: No Reported Reaction Past Psychological History: No Psychological Hx Reported Smoking Status: Never smoker Past Alcohol Use History: None Reported Past Drug Use History: None Reported - Past Family History Mother Family Medical History: No Reported History Father Family Medical History: Myocardial Infarction ([place]) Sister(s) Additional Family Medical History / Comment(s): Lupus - pt's sister Course Vital Signs 03/03/19 07:19 Temperature 98.3 F Pulse Rate 59 L Respiratory 18 Rate Blood Pressure 180/78 O2 Sat by Pulse 99 Oximetry Disposition Clinical Impression: Elbow pain, right Disposition: HOME SELF-CARE Condition: Good Instructions (If sedation given, give patient instructions): Elbow Fracture (ED) Prescriptions: HYDROcodone/APAP 5-325MG [[place] 5-325] 1 tab PO Q6HR PRN 3 Days #5 tab PRN Reason: Severe Pain Is patient prescribed a controlled substance at d/c from ED?: Yes If prescribed controlled substance>3 days was MAPS reviewed?: Prescribed <3 Days Referrals: Geoff Polanco DO [Doctor of Osteopathic Medicine] - 1-2 days Time of Disposition: 08:47
--- NOTE | 2019-03-03 07:55 | XR ---
EXAMINATION TYPE: XR shoulder complete RT , 3 VIEWS DATE OF EXAM ORDERED: 03/03/2019 HISTORY: Pain. COMPARISON: Previous study dated 09/16/2017. FINDINGS: There are moderately severe hypertrophic changes present in the right AC joint. There is d ecentering of the humerus in the glenohumeral joint. There is scalloping of the undersurface of the a cromion. No fracture or dislocation is seen. IMPRESSION: 1. NO ACUTE OSSEOUS LESION. 2. DEGENERATIVE CHANGE, RIGHT AC JOINT. 3. INDIRECT EVIDENCE OF ROTATOR CUFF DISEASE.
--- NOTE | 2019-03-03 08:00 | XR ---
EXAMINATION TYPE: XR elbow complete RT , 4 VIEWS DATE OF EXAM ORDERED: 03/03/2019 HISTORY: Pain. COMPARISON: None. FINDINGS: There is calcification just lateral to the right humeral epicondyle. This is likely within the common extensor tendon. No definite fracture is seen. I'm suspicious that there is a joint effus ion. IMPRESSION: THE PRESENCE OF A JOINT EFFUSION SUGGESTS THAT THERE MAY BE AN OCCULT FRACTURE. IF CLINICALLY INDICAT ED, IMMOBILIZATION WITH REPEAT RADIOGRAPHY IN 10-14 DAYS WOULD BE SUGGESTED.
[2019-03-03 09:05] VITALS: BP 167/83; PULSE 60; TEMP 97.6
== END 2019-03-03 09:05 | disposition home or self-care (01) ==
LOC: EC 07:14
DX: M25.521 Pain in right elbow (principal); S40.011A Contusion of right shoulder, initial encounter; M19.011 Primary osteoarthritis, right shoulder; M06.9 Rheumatoid arthritis, unspecified; J44.9 Chronic obstructive pulmonary disease, unspecified; E78.5 Hyperlipidemia, unspecified; I10 Essential (primary) hypertension; M10.9 Gout, unspecified; Z95.818 Presence of other cardiac implants and grafts; Z96.642 Presence of left artificial hip joint; Z87.828 Personal history of other (healed) physical injury and trauma; Z79.01 Long term (current) use of anticoagulants; Z79.51 Long term (current) use of inhaled steroids; Z79.52 Long term (current) use of systemic steroids; Z79.899 Other long term (current) drug therapy; W01.0XXA Fall on same level from slipping, tripping and stumbling without subsequent striking against object, initial encounter
CPT/HCPCS: 29105; 99283

== ENCOUNTER 2019-08-11 19:29 | Emergency (ER) | payer MEDICARE ==
[2019-08-11] MEDS ORDERED: IPRATROPIUM-ALBUTEROL 3 ML NEB INHALATION STA (19:43)
[2019-08-11] MEDS ORDERED: SODIUM CHLORIDE 0.9% 1,000 ML IV STA (19:43)
[2019-08-11] MEDS ORDERED: ONDANSETRON 4 MG/2 ML VIAL IVP STA (19:44)
[2019-08-11] MEDS ORDERED: LORazepam 2 MG/ML INJ IV STA (19:44)
--- NOTE | 2019-08-11 19:48 | ED ---
Anxiety HPI - General Stated Complaint: Neck Swelling/Anxiety Time Seen by Provider: 08/11/19 19:40 Source: RN notes reviewed, old records reviewed Limitations: altered mental status (Anxiety) - History of Present Illness Initial Comments: This is a 73-year-old female the ER for evaluation. Patient has no history of breathing disorders or chest issues heart issues. Patient presents today feeling she can't catch her breath symptoms started with hiccups. She's had one episode before) asthmatic bronchitis. Patient denies any increase in stress. No drugs or alcohol. No fevers. No chest pain. MD Complaint: anxiety, shortness of breath -: hour(s) Symptoms: dyspnea, palpitations Place: home Previous History of Same: Yes Severity: moderate Quality: constant Provoking factors: emotional stress Improves With: nothing Worsens With: nothing Associated symptoms: palpitations, weakness - Related Data Home Medications: Home Medications Medication Instructions Recorded Confirmed Atenolol 100 mg PO DAILY 04/22/14 08/11/19 Febuxostat [Uloric] 40 mg PO DAILY 04/22/14 08/11/19 Albuterol Inhaler [Ventolin Hfa 1 puff INHALATION RT-QID PRN 06/02/17 08/11/19 Inhaler] Apixaban [Eliquis] 5 mg PO BID 09/16/17 08/11/19 Budesonide/Formoterol Fumarate 2 puff INHALATION RT-BID 09/16/17 08/11/19 [Symbicort 160-4.5 Mcg Inhaler] Rosuvastatin [Crestor] 10 mg PO DAILY 09/16/17 08/11/19 amLODIPine [Norvasc] 2.5 mg PO DAILY 09/16/17 08/11/19 Orencia(Unknown) 1 dose SQ Q30D 08/11/19 08/11/19 predniSONE 30 mg PO DAILY PRN 08/11/19 08/11/19 Allergies/Adverse Reactions: Allergies Allergy/AdvReac Type Severity Reaction Status Date / Time cinacalcet [From Sensipar] Allergy Unknown Verified 08/11/19 19:39 Review of Systems ROS Statement: Those systems with pertinent positive or pertinent negative responses have been documented in the HPI. ROS Other: All systems not noted in ROS Statement are negative. Past Medical History Past Medical History: COPD, Hyperlipidemia, Hypertension, Osteoarthritis (OA), Rheumatoid Arthritis (RA) Additional Past Medical History / Comment(s): vasculitisbenign thyroid nodules4 types of arthritis - RA, psoriatic, chronic gout, OAautoimmune inner ear, Aortic Anysrusm History of Any Multi-Drug Resistant Organisms: None Reported Past Surgical History: Section, Heart Catheterization, Hysterectomy, Joint Replacement Additional Past Surgical History / Comment(s): left hip replacementremoval of Parotid tumor - left side of neck right knee arthroscopy, left wrist ganglion cyst removal, VERNON, RT thumb surgery Past Anesthesia/Blood Transfusion Reactions: No Reported Reaction Past Psychological History: No Psychological Hx Reported Smoking Status: Never smoker Past Alcohol Use History: None Reported Past Drug Use History: None Reported - Past Family History Mother Family Medical History: No Reported History Father Family Medical History: Myocardial Infarction ([place]) Sister(s) Additional Family Medical History / Comment(s): Lupus - pt's sister General Exam General appearance: alert, anxious Head exam: Present: atraumatic, normocephalic, normal inspection Eye exam: Present: normal appearance, PERRL, EOMI. Absent: scleral icterus, conjunctival injection, periorbital swelling ENT exam: Present: normal exam, mucous membranes moist Neck exam: Present: normal inspection. Absent: tenderness, meningismus, lymphadenopathy Respiratory exam: Present: normal lung sounds bilaterally. Absent: respiratory distress, wheezes, rales, rhonchi, stridor Cardiovascular Exam: Present: regular rate, normal rhythm, normal heart sounds. Absent: systolic murmur, diastolic murmur, rubs, gallop, clicks GI/Abdominal exam: Present: soft, normal bowel sounds. Absent: distended, tenderness, guarding, rebound, rigid Extremities exam: Present: normal inspection, full ROM, normal capillary refill. Absent: tenderness, pedal edema, joint swelling, calf tenderness Back exam: Present: normal inspection Neurological exam: Present: alert, oriented X3, CN II-XII intact Psychiatric exam: Present: normal affect, normal mood Skin exam: Present: warm, dry, intact, normal color. Absent: rash Course Vital Signs 08/11/19 08/11/19 08/11/19 19:37 20:09 20:12 Temperature 97.8 F Pulse Rate 68 67 67 Respiratory 20 18 Rate Blood Pressure 154/97 154/97 O2 Sat by Pulse 97 96 Oximetry 08/11/19 08/11/19 08/11/19 20:17 21:05 21:13 Temperature 97.8 F Pulse Rate 69 68 68 Respiratory 16 16 Rate Blood Pressure 128/75 125/70 O2 Sat by Pulse 96 96 Oximetry - Reevaluation(s) Reevaluation #1: 08/11/19 19:48 Medical records reviewed Medical Decision Making - Medical Decision Making [age] female the ER for evaluation, patient coming in for anxiety symptoms. States her with a "catch her breath. Concern now resolved, patient is feeling improved. Patient states she feels good for discharge home - Lab Data Result diagrams: 08/11/19 19:45 08/11/19 19:45 Lab Results 08/11/19 08/11/19 08/11/19 Range/Units 19:45 19:45 19:45 WBC 6.0 (3.8-10.6) k/uL RBC 3.90 (3.80-5.40) m/uL Hgb 12.1 (11.4-16.0) gm/dL Hct 36.2 (34.0-46.0) % MCV 92.9 (80.0-100.0) fL MCH 31.0 (25.0-35.0) pg MCHC 33.4 (31.0-37.0) g/dL RDW 15.0 (11.5-15.5) % Plt Count 186 (150-450) k/uL Neutrophils % 49 % Lymphocytes % 38 % Monocytes % 6 % Eosinophils % 5 % Basophils % 1 % Neutrophils # 2.9 (1.3-7.7) k/uL Lymphocytes # 2.3 (1.0-4.8) k/uL Monocytes # 0.4 (0-1.0) k/uL Eosinophils # 0.3 (0-0.7) k/uL Basophils # 0.0 (0-0.2) k/uL Sodium 142 (137-145) mmol/L Potassium 3.9 (3.5-5.1) mmol/L Chloride 108 H (98-107) mmol/L Carbon Dioxide 22 (22-30) mmol/L Anion Gap 12 mmol/L BUN 12 (7-17) mg/dL Creatinine 1.21 H (0.52-1.04) mg/dL Est GFR (CKD-EPI)AfAm 52 (>60 ml/min/1.73 sqM) Est GFR (CKD-EPI)NonAf 45 (>60 ml/min/1.73 sqM) Glucose 109 H (74-99) mg/dL Calcium 9.8 (8.4-10.2) mg/dL Magnesium 1.9 (1.6-2.3) mg/dL Total Bilirubin 0.3 (0.2-1.3) mg/dL AST 33 (14-36) U/L ALT 19 (9-52) U/L Alkaline Phosphatase 65 (38-126) U/L Troponin I (0.000-0.034) ng/mL NT-Pro-B Natriuret Pep 280 pg/mL Total Protein 6.6 (6.3-8.2) g/dL Albumin 4.1 (3.5-5.0) g/dL 08/11/19 Range/Units 19:45 WBC (3.8-10.6) k/uL RBC (3.80-5.40) m/uL Hgb (11.4-16.0) gm/dL Hct (34.0-46.0) % MCV (80.0-100.0) fL MCH (25.0-35.0) pg MCHC (31.0-37.0) g/dL RDW (11.5-15.5) % Plt Count (150-450) k/uL Neutrophils % % Lymphocytes % % Monocytes % % Eosinophils % % Basophils % % Neutrophils # (1.3-7.7) k/uL Lymphocytes # (1.0-4.8) k/uL Monocytes # (0-1.0) k/uL Eosinophils # (0-0.7) k/uL Basophils # (0-0.2) k/uL Sodium (137-145) mmol/L Potassium (3.5-5.1) mmol/L Chloride (98-107) mmol/L Carbon Dioxide (22-30) mmol/L Anion Gap mmol/L BUN (7-17) mg/dL Creatinine (0.52-1.04) mg/dL Est GFR (CKD-EPI)AfAm (>60 ml/min/1.73 sqM) Est GFR (CKD-EPI)NonAf (>60 ml/min/1.73 sqM) Glucose (74-99) mg/dL Calcium (8.4-10.2) mg/dL Magnesium (1.6-2.3) mg/dL Total Bilirubin (0.2-1.3) mg/dL AST (14-36) U/L ALT (9-52) U/L Alkaline Phosphatase (38-126) U/L Troponin I <0.012 (0.000-0.034) ng/mL NT-Pro-B Natriuret Pep pg/mL Total Protein (6.3-8.2) g/dL Albumin (3.5-5.0) g/dL - EKG Data -: EKG Interpreted by Me (EKG shows sinus arrhythmia of 3, AL 170, QRS 84, QTc 473) - Radiology Data Radiology results: report reviewed (S x-rays negative for acute disease), image reviewed Disposition Clinical Impression: Nausea, Anxiety Disposition: HOME SELF-CARE Condition: Good Instructions (If sedation given, give patient instructions): Acute Nausea and Vomiting (ED), Anxiety (ED) Is patient prescribed a controlled substance at d/c from ED?: No Referrals: Lázaro Orona MD [Primary Care Provider] - 1-2 days
[2019-08-11 19:51] VITALS: TEMP 97.8
[2019-08-11 20:07] LABS: Basophils % (A) 1 %; Eosinophils # (A) 0.3 k/uL (0-0.7); Eosinophils % (A) 5 %; HCT 36.2 % (34.0-46.0); HGB 12.1 gm/dL (11.4-16.0); Lymphocytes # (A) 2.3 k/uL (1.0-4.8); Lymphocytes % (A) 38 %; MCHC 33.4 g/dL (31.0-37.0); MCV 92.9 fL (80.0-100.0); Mean Platelet Volume 8.3; Monocytes # (A) 0.4 k/uL (0-1.0); Monocytes % (A) 6 %; Neutrophils # (A) 2.9 k/uL (1.3-7.7); Neutrophils % (A) 49 %; Platelet Count 186 k/uL (150-450)
[2019-08-11 20:20] LABS: Albumin 4.1 g/dL (3.5-5.0); Calcium 9.8 mg/dL (8.4-10.2); Magnesium 1.9 mg/dL (1.6-2.3); Potassium 3.9 mmol/L (3.5-5.1); Total Bilirubin 0.3 mg/dL (0.2-1.3); Total Protein 6.6 g/dL (6.3-8.2)
--- NOTE | 2019-08-11 20:49 | XR ---
EXAMINATION TYPE: XR chest 1V portable DATE OF EXAM: 08/11/2019 COMPARISON: 04/10/2018 HISTORY: Short of breath TECHNIQUE: Single frontal view of the chest is obtained. FINDINGS: There is no heart failure nor confluent pneumonic infiltrate. There are chest leads. Costo phrenic angles are clear. Heart size is normal. IMPRESSION: No active cardiopulmonary disease. No change.
[2019-08-11] MEDS ORDERED: LORazepam 1 MG TAB PO STA (21:08)
[2019-08-11 21:11] VITALS: PULSE 68; RESP 16
[2019-08-11 21:13] VITALS: BP 125/70
== END 2019-08-11 21:32 | disposition home or self-care (01) ==
LOC: EC 19:29
DX: F41.9 Anxiety disorder, unspecified (principal); J44.9 Chronic obstructive pulmonary disease, unspecified; E78.5 Hyperlipidemia, unspecified; I10 Essential (primary) hypertension; M19.90 Unspecified osteoarthritis, unspecified site; M06.9 Rheumatoid arthritis, unspecified; M1A.9XX0 Chronic gout, unspecified, without tophus (tophi); Z88.8 Allergy status to other drugs, medicaments and biological substances; Z79.01 Long term (current) use of anticoagulants; Z79.51 Long term (current) use of inhaled steroids; Z79.52 Long term (current) use of systemic steroids; Z79.899 Other long term (current) drug therapy; Z96.642 Presence of left artificial hip joint
CPT/HCPCS: 99284; 96374; 96375; 96361; 36415; 94640; 93005; 83880; 80053; 83735; 84484; 85025; 71045; J2060; J2405

== ENCOUNTER → 2020-07-10 | Outpatient (CLI) | payer MEDICARE ==
--- NOTE | 2020-07-10 09:43 | MM ---
Reason for exam: clinical finding. Last mammogram was performed 2 years and 7 months ago. History: Patient is postmenopausal. Core biopsy of the left breast. Core biopsy of the right breast. Took estrogen for 1 year. Indicated problem(s): palpable abnormality in the right breast. Physical Findings: Nurse Summary: 4 x 5cm nodule in the right breast at 10 o'clock and a 3cm nodule in the left breast at 1 o'clock (nurse yessica). MG 3D Diag Mammo W/Cad MYLES Bilateral CC and MLO view(s) were taken. Prior study comparison: December 22, 2017, bilateral MG 3d screening mammo w/cad. May 01, 1997, bilateral diagnostic mammogram. The breast tissue is heterogeneously dense. This may lower the sensitivity of mammography. Benign appearing bilateral calcifications. These results were verbally communicated with the patient and result sheet given to the patient on 07/10/20. ASSESSMENT: Incomplete: need additional imaging evaluation, BI-RAD 0 RECOMMENDATION: Ultrasound of the left breast.
--- NOTE | 2020-07-10 09:44 | USB ---
Reason for exam: additional evaluation requested from abnormal screening. History: Patient is postmenopausal. Core biopsy of the left breast. Core biopsy of the right breast. Took estrogen for 1 year. US Breast Limited LT Left limited breast ultrasound including focal area of concern, retroareolar and axilla demonstrates a 0.7 x 0.7 x 0.5cm calcification at 1 o'clock BB and another calcifications seen at 11 o'clock. These results were verbally communicated with the patient and result sheet given to the patient on 07/10/20. ASSESSMENT: Probably benign, BI-RAD 3 RECOMMENDATION: Follow-up diagnostic mammogram of both breasts in 6 months.
== END | disposition home or self-care (01) ==
LOC: RADMAMWWP 08:13
PROVIDERS: ATTEND Family Medicine
DX: N63.10 Unspecified lump in the right breast, unspecified quadrant (principal); N63.20 Unspecified lump in the left breast, unspecified quadrant; R92.8 Other abnormal and inconclusive findings on diagnostic imaging of breast
CPT/HCPCS: 77066; 76642; G0279; 77062

== ENCOUNTER → 2021-05-06 | Outpatient (CLI) | payer MEDICARE ==
--- NOTE | 2021-05-06 10:55 | US ---
EXAMINATION TYPE: US kidneys/renal and bladder DATE OF EXAM: 05/06/2021 COMPARISON: CT 10/18/2016 CLINICAL HISTORY: N18.32 CKD Stage 3b. CKD, no symptoms EXAM MEASUREMENTS: Right Kidney: 7.8 x 3.7 x 3.8 cm Left Kidney: 9.2 x 3.7 x 4.2 cm Right Kidney: No hydronephrosis or masses seen, smaller in size Left Kidney: No hydronephrosis or masses seen Bladder: not distended There is no evidence for hydronephrosis at this point in time. No nephrolithiasis is seen. No ashanti s are identified. The urinary bladder was not imaged. IMPRESSION: Unremarkable kidneys.
== END | disposition home or self-care (01) ==
LOC: RADUSWWP 10:11
PROVIDERS: ATTEND Internal Medicine Nephrology
DX: N18.32 Chronic kidney disease, stage 3b (principal)
CPT/HCPCS: 76770

== ENCOUNTER → 2024-01-08 | Outpatient (CLI) | payer MEDICARE ==
--- NOTE | 2024-01-09 14:50 | US ---
EXAMINATION TYPE: US kidneys/renal and bladder DATE OF EXAM: 01/08/2024 COMPARISON: 12/22/2017 - US Renal Artery 05/06/2021 - US KRB CLINICAL INDICATION: Female, 78 years old with history of N18.31 CHRONIC KIDNEY DISEASE, STAGE 3A; Hx HTN; Patient denies any other signs or symptoms at this time EXAM MEASUREMENTS: Right Kidney: 8.1 x 4.0 x 3.9 cm Left Kidney: 9.1 x 3.8 x 3.9 cm Increased cortical echogenicity with some cortical thinning. Right Kidney: No hydronephrosis or masses seen Left Kidney: No hydronephrosis or masses seen Bladder: Underdistention limits its evaluation. Bilateral Jets seen: Not assessed Normal Post Void Residual: NA Incidental: right hepatic lobe cyst measuring 3.7 x 3.6 x 4.3 cm and containing a thin internal sept ation IMPRESSION: 1. No hydronephrosis. Changes of chronic medical renal disease. 2. Incidental mildly complex right hepatic lobe cyst measuring 4.3 cm. Six-month follow-up ultrasound to reassess.
== END | disposition home or self-care (01) ==
LOC: RADUSWWP 15:12
PROVIDERS: ATTEND Internal Medicine Nephrology
DX: I12.9 Hypertensive chronic kidney disease with stage 1 through stage 4 chronic kidney disease, or unspecified chronic kidney disease (principal); N18.31 Chronic kidney disease, stage 3a
CPT/HCPCS: 76770

== ENCOUNTER → 2025-01-31 | Outpatient (CLI) | payer MEDICARE ==
--- NOTE | 2025-01-31 09:01 | US ---
EXAMINATION TYPE: US venous doppler duplex LE BI DATE OF EXAM: 01/31/2025 8:50 AM COMPARISON: US 2018 CLINICAL INDICATION: Female, 79 years old with history of R22.42 SWELLING LEFT LOWER LIMB R22.41 SWE LLING R; Left leg swelling TECHNIQUE: The lower extremity deep venous system is examined utilizing real time linear array sonog audi with graded compression, color doppler sonography, and spectral doppler. SIDE PERFORMED: Bilateral FINDINGS: VESSELS IMAGED: Common Femoral Vein Deep Femoral Vein Greater Saphenous Vein * Femoral Vein Popliteal Vein Small Saphenous Vein * Proximal Calf Veins (* superficial vessels) Right Leg: Appears negative for DVT Left Leg: Appears negative for DVT 7.3 x 2.3 x 4.9cm complex cystic area seen right popliteal fossa consistent with Pak's cyst is re demonstrated. IMPRESSION: No ultrasound evidence for deep venous thrombosis. [facility], , 01/31/2025 8:59 AM
[2025-01-31 15:35] LABS: Chloride 105 mmol/L (96-109); Glucose 76 mg/dL (70-110); Potassium 3.7 mmol/L (3.5-5.5); Sodium 142 mmol/L (135-145)
[2025-01-31 15:36] LABS: BUN/Creat Ratio 17.18 Ratio (12.00-20.00); Blood Urea Nitrogen 18.9 mg/dL (9.0-27.0); Calcium 9.1 mg/dL (8.7-10.3); Carbon Dioxide 26.4 mmol/L (21.6-31.8); NT-Pro-B-Type Natriuretic Pept 3896 pg/mL (0-450)
[2025-01-31 16:24] LABS: HCT 29.5 % (37.2-46.3); HGB 8.9 g/dL (12.0-15.0); MCH 32.2 pg (27.0-32.0); MCHC 30.2 g/dL (32.0-37.0); MCV 106.9 FL (80.0-97.0); Mean Platelet Volume 11.1 FL (9.5-12.2); NRBC Per 100 WBC 0 X 10*3/uL (0.00-0.01); Platelet Count 229 X 10*3/uL (140-440); RBC 2.76 X 10*6/uL (4.10-5.20); RDW 16.7 % (11.5-14.5); WBC 5.12 X 10*3/uL (4.50-10.00)
== END | disposition home or self-care (01) ==
LOC: RADUSWWP 08:22
PROVIDERS: ATTEND Internal Medicine Interventional Cardiology
DX: I34.0 Nonrheumatic mitral (valve) insufficiency (principal); R22.43 Localized swelling, mass and lump, lower limb, bilateral
CPT/HCPCS: 80048; 83880; 85027; 93970